=== PATIENT | female | born 1990 | race Caucasian/White ===

== ENCOUNTER 2022-02-07 13:26 | Inpatient (IN) ==
[2022-02-08] MEDS ORDERED: OXYTOCIN 30 UNITS/500 ML BAG IV PRN ×2 (09:50→12:52)
[2022-02-08] MEDS ORDERED: DINOPROSTONE 10 MG INSERT PV ONE (10:00)
[2022-02-08] MEDS: LACTATED RINGER'S 1,000 ML IV PRN (10:15)
--- NOTE | 2022-02-08 10:16 | History & Physical Report ---
Date of Service February 08, 2022 Assessment & Plan (1) Obesity affecting in third trimester, antepartum: Plan: 31-year-old at 39 weeks and 4 days of gestation being admitted for induction of labor at term for obesity, Vital signs stable afebrile, GBS negative, Coronavirus testing negative, heart rate reassuring, Cervix is unfavorable, discussed cervical ripening with prostaglandins and what to expect, All questions were answered, Plan to admit, monitor, labs, cervical ripening with Cervidil. Admission and Anticipated Discharge Date Admission Date: February 08, 2022 History of Present Illness Primary Care Provider: Freda Soares MD Patient is a 31-year-old G1, P0 at 39 weeks and 4 days of gestation who was scheduled for induction of labor at term for obesity. Patient has no complaints, denies contractions, leakage of fluid or vaginal bleeding. She reports good movements. She had 1 time of small trickle yesterday which was followed by mucous discharge. No more leaking since then. Per her her has been uncomplicated. She had ultrasound at 34.[address] [facility] and growth was 41 percentile. GBS is negative and coronavirus testing is negative. She has a history of depression anxiety and she is on Prozac. History of IBS, history of heart murmur as a child, echocardiogram was within normal limits. Allergies Allergy/AdvReac Type Severity Reaction Status Date / Time acetaminophen [From Vicodin] Allergy Intermediate Hives Verified 12/14/20 06:31 codeine Allergy Intermediate Hives Verified 12/14/20 06:31 hydrocodone [From Vicodin] Allergy Intermediate Hives Verified 12/14/20 06:31 Home Medications Medication Instructions Recorded Confirmed Type dicyclomine 20 mg tablet 20 mg PO BID 01/11/20 12/14/20 History fluoxetine 40 mg capsule 80 mg PO QAM 01/11/20 12/14/20 History hydroxyzine HCl 50 mg tablet 50 mg PO BID PRN 01/11/20 12/14/20 History iron,carbonyl 65 mg-vitamin C 125 1 tab PO Q OTHER DAY 01/11/20 12/14/20 History mg tablet,delayed release (Vitron-C) norgestimate 0.25 mg-ethinyl 1 tab PO DAILY 12/09/20 12/14/20 History estradiol 35 mcg tablet (Sprintec (28)) pantoprazole 40 mg tablet,delayed 40 mg PO QAM 12/09/20 12/14/20 History release (Protonix) oxycodone-acetaminophen 5 mg-325 1 tab PO Q6H PRN #20 tab 12/14/20 Rx mg tablet (Percocet) Patient History Medical History (Updated 02/08/22 @ 10:15 by Tia Bowers MD) Anemia Anxiety Cardiac murmur No murmur noted on 12/01/20 PCP exam Depression GERD (gastroesophageal reflux disease) History of anesthesia reaction with tonsillectomy in recovery room pt had to have oxygen put back on for awhile after it was originally removed, no further issues....no issues with other surgeries Migraine Morbid obesity with BMI of 40.0-44.9, adult Pre-diabetes Thrombocythemia Surgical History History of esophagogastroduodenoscopy (EGD) History of right breast biopsy x4--benign History of tonsillectomy and adenoidectomy History of wisdom tooth extraction Family History Father Family history of diabetes mellitus Grandmother (Maternal) Family history of diabetes mellitus Grandmother (Paternal) Family history of esophageal cancer Grandfather (Maternal) Family history of esophageal cancer Other No family history of adverse response to anesthesia Social History Smoking Status: Never smoker Second Hand Exposure: No; Hx Alcohol Use: Yes Alcohol type: wine Hx Substance Use: No Preferred Language: Romanian Communication Ability: Effective Brim Molder Required: No Beliefs That Will Affect Care: None Current Living Situation: Spouse Feels Safe at Home: Yes 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 History History of STDs, no history of herpes, chlamydia, gonorrhea Review of Systems as per Subjective / HPI Physical Exam Constitutional: WD/WN, vitals as above well developed, + acute distress and + obese Appears to be comfortable, not in distress Gastrointestinal (Abdomen): normal bowel sounds, soft, nontender, no hepatosplenomegaly (Gravid, Lucas 7 to 8 pounds) Genitourinary: normal external appearance OB Exam Abdomen: + vertex Manual OB Exam: + cervical dilation 1 cm, + cervical effacement 30% and + station high OB Exam Monitor Tracing: + external uterine monitor used and + category I Results & Data ([facility]) Vital Signs (Past 12 Hours) Vital Signs Pulse BP 02/08/22 09:37 103 H 127/77
[2022-02-08] MEDS ORDERED: FLUCONAZOLE 50 MG TAB PO ONE (10:37)
--- NOTE | 2022-02-08 10:38 | Obstetrical Progress Note ---
Date of Service February 08, 2022 Assessment & Plan Admission and Anticipated Discharge Date Admission Date: February 08, 2022 Subjective Amnisure negative Cervidil is placed in post fornix Otilia noted, Diflucan 1 tb once Results & Data ([facility]) Vital Signs (Past 12 Hours) Vital Signs Pulse BP 02/08/22 09:37 103 H 127/77
[2022-02-08 10:53] LABS: Hematocrit (blood only) 35.1 % (37-47); Hemoglobin 11.9 g/dL (12.0-16.0); Mean Corpuscular Hemoglobin 31.1 pg (25-34); Mean Corpuscular Hgb Conc 33.9 g/dL (32-36); Mean Corpuscular Volume 91.6 fL (80-100); Mean Platelet Volume 9.9 fL (7.4-10.4); Platelet Count 379 K/uL (130-400); RDW Coefficient of Variation 13.3 % (11.5-14.5); RDW Standard Deviation 44.2 fL (36.4-46.3); Red Blood Count 3.83 M/uL (4.2-5.4); White Blood Count 9.64 K/uL (4.8-10.8)
[2022-02-08] MEDS ORDERED: IBUPROFEN 600 MG TAB PO PRN (12:52)
[2022-02-08] MEDS ORDERED: miSOPROStoL 200 MCG TAB PR ONE (12:52)
[2022-02-08] MEDS ORDERED: ACETAMINOPHEN 325 MG TAB PO PRN (12:52)
[2022-02-08] MEDS ORDERED: DIPHTHERIA/TETANUS/PERTUSSIS 0.5 ML SYR/VIAL IM ONE (12:52)
[2022-02-08] MEDS ORDERED: MEASLES, MUMPS & RUBELLA VIRUS VIAL SQ ONE (12:52)
[2022-02-08] MEDS ORDERED: bisacodyL 10 MG SUPP PR PRN (12:52)
[2022-02-08] MEDS ORDERED: BENZOCAINE 20% AER SPR 82.5 GM CAN EXT PRN (12:52)
[2022-02-08] MEDS ORDERED: HYDROCORTISONE ACETATE 25 MG SUPP PR PRN (12:52)
[2022-02-08] MEDS ORDERED: BUTORPHANOL TARTRATE 1 MG/ML VIAL IV PRN (16:58)
--- NOTE | 2022-02-08 16:58 | Obstetrical Progress Note ---
Date of Service February 08, 2022 Assessment & Plan Admission and Anticipated Discharge Date Admission Date: February 08, 2022 Subjective Patient is reevaluated. She feels well no complaints Sporatic mild ctxs, not painful No LOF nor VB FM+ FHR reassuring Continue with cervical ripening and monitor Results & Data ([facility]) Vital Signs (Past 12 Hours) Vital Signs Temp Pulse Resp BP 02/08/22 10:55 37.2 C 20 02/08/22 09:37 103 H 127/77
--- NOTE | 2022-02-08 22:43 | Obstetrical Progress Note ---
Date of Service February 08, 2022 Assessment & Plan Admission and Anticipated Discharge Date Admission Date: February 08, 2022 Subjective Patient is reevaluated. She started to feel contractions every 5 to 6 minutes s ton 7 PM. They are more painful but not long enough that she would require pain medication. No leakage of fluid or vaginal bleeding. She reports good movements. Vital signs stable afebrile, heart rate category 1, VE; 1-2 cm/ 30%/ -3, ballotable head, cervidil is removed Plan for a meal, shower and continue cervical ripening with PO Cytotec. All questions were answered Results & Data ([facility]) Vital Signs (Past 12 Hours) Vital Signs Temp Pulse Resp BP 02/08/22 22:34 36.9 C 80 18 128/59 L 02/08/22 19:46 36.9 C 91 H 18 132/79 02/08/22 10:55 37.2 C 20
[2022-02-08] MEDS: DOCUSATE SODIUM 100 MG CAP PO SCH (23:15)
[2022-02-09] MEDS: miSOPROStoL 50 MCG TAB PO SCH ×3 (00:12→11:43)
[2022-02-09 07:31] LABS: Hematocrit (blood only) 32.6 % (37-47); Hemoglobin 10.9 g/dL (12.0-16.0); Mean Corpuscular Hemoglobin 30.9 pg (25-34); Mean Corpuscular Hgb Conc 33.4 g/dL (32-36); Mean Corpuscular Volume 92.4 fL (80-100); Mean Platelet Volume 10.2 fL (7.4-10.4); Platelet Count 343 K/uL (130-400); RDW Coefficient of Variation 13.3 % (11.5-14.5); RDW Standard Deviation 44.3 fL (36.4-46.3); Red Blood Count 3.53 M/uL (4.2-5.4); White Blood Count 8.78 K/uL (4.8-10.8)
[2022-02-09] MEDS ORDERED: OXYTOCIN 30 UNITS/500 ML BAG IV PRN ×2 (07:59→17:08)
[2022-02-09] MEDS ORDERED: FERROUS SULFATE 325 MG TAB PO SCH (08:00)
--- NOTE | 2022-02-09 08:01 | Obstetrical Progress Note ---
Date of Service February 09, 2022 Assessment & Plan Admission and Anticipated Discharge Date Admission Date: February 08, 2022 Subjective Patient feels more painful ctxs/ back pain, 5/10 Received 2 doses of PO Cytotec, due for 3rd dose VSS Afebrile VE; 3-4 cm/ 50%/ -2, tight bag, AROM'ed, abundant amount of meconium stained fluid FHR categ I Plan to start Oxytocin Results & Data ([facility]) Vital Signs (Past 12 Hours) Vital Signs Temp Pulse Resp BP 02/09/22 07:24 81 127/75 02/09/22 03:20 36.7 C 77 18 116/71 02/08/22 22:34 36.9 C 80 18 128/59 L
[2022-02-09] MEDS ORDERED: fentaNYL citrate 100 MCG/2 ML VIAL ONE ×3 (08:17→10:43)
[2022-02-09] MEDS ORDERED: ePHEDrine sulfate 50 MG/ML AMP ONE (08:17)
[2022-02-09] MEDS ORDERED: BUPIVACAINE 0.25% 30 ML VIAL ONE ×2 (08:17→10:39)
[2022-02-09] MEDS ORDERED: SODIUM CHLORIDE 0.9% INJ 10 ML VIAL ONE (08:17)
[2022-02-09] MEDS ORDERED: fentaNYL 2MCG/ML ROPIVACAINE 1.25MG/ML 100 ML BAG EPI ONE (08:18)
[2022-02-09] MEDS: LACTATED RINGER'S 1,000 ML IV PRN (09:00)
[2022-02-09] MEDS ORDERED: NON-FORMULARY MEDICATION (Iron,Carbonyl-Vitamin C [Vitron-C] 65 mg iron- 125 mg Tablet,Del PO SCH (09:00)
--- NOTE | 2022-02-09 09:10 | Anesthesiology Consultation ---
Date of Service February 09, 2022 Assessment & Plan Chart Review Chart Review: Acceptable Risk for Labor Epidural Consults Requested none History Height/Weight Height: 5 ft 5 in Weight: 111.316 kg Allergies Allergy/AdvReac Type Severity Reaction Status Date / Time acetaminophen [From Vicodin] Allergy Intermediate Hives Verified 12/14/20 06:31 codeine Allergy Intermediate Hives Verified 12/14/20 06:31 hydrocodone [From Vicodin] Allergy Intermediate Hives Verified 12/14/20 06:31 Medications Home Medications Medication Instructions Recorded Confirmed Last Taken dicyclomine 20 mg tablet 20 mg PO BID 01/11/20 02/08/22 02/08/22 0800 iron,carbonyl 65 mg-vitamin C 125 1 tab PO BID 01/11/20 02/08/22 02/08/22 mg tablet,delayed release 0800 (Vitron-C) pantoprazole 40 mg tablet,delayed 40 mg PO QAM 12/09/20 02/08/22 02/08/22 release (Protonix) 0800 cyanocobalamin (vitamin B-12) 1,000 mcg PO DAILY 02/08/22 02/08/22 02/07/22 20:00 1,000 mcg tablet (Vitamin B-12) fluoxetine 40 mg capsule (Prozac) 80 mg PO QAM 02/08/22 02/08/22 02/08/22 0800 folic acid 0.8 mg capsule 0.8 mg PO DAILY 02/08/22 02/08/22 02/08/22 0800 pyridoxine (vitamin B6) 50 mg 50 mg PO DAILY 02/08/22 02/08/22 02/07/22 20:00 tablet (Vitamin B-6) Active Medications Generic Name Dose Route Start Last Admin Trade Name Freq PRN Reason Stop Dose Admin Docusate Sodium 100 mg 02/08/22 21:00 02/08/22 23:15 Docusate Sodium 100 Mg Cap PO 03/10/22 20:59 Not Given DAILY@ SAMANTHA Lactated Ringer's 1,000 mls @ 150 mls/hr 02/08/22 09:50 02/08/22 10:15 Lr IV 02/10/22 09:49 150 mls/hr .[id number] PRN Administration L&D Protocol Protocol Misoprostol 50 mcg 02/09/22 00:00 02/09/22 04:05 Misoprostol 50 Mcg Tab PO 03/11/22 00:00 50 mcg Q4 SAMANTHA Administration Past Medical History Medical History (Updated 02/08/22 @ 10:15 by Tia Bowers MD) Anemia Anxiety Cardiac murmur No murmur noted on 12/01/20 PCP exam Depression GERD (gastroesophageal reflux disease) History of anesthesia reaction with tonsillectomy in recovery room pt had to have oxygen put back on for awhile after it was originally removed, no further issues....no issues with other surgeries Migraine Morbid obesity with BMI of 40.0-44.9, adult Pre-diabetes Thrombocythemia Past Family History Family History Father Family history of diabetes mellitus Grandmother (Maternal) Family history of diabetes mellitus Grandmother (Paternal) Family history of esophageal cancer Grandfather (Maternal) Family history of esophageal cancer Other No family history of adverse response to anesthesia Past Surgical History Surgical History (Updated 02/08/22 @ 10:45 by Gretchen Duran RN) History of esophagogastroduodenoscopy (EGD) History of right breast biopsy x4--benign History of tonsillectomy and adenoidectomy History of wisdom tooth extraction Hx laparoscopic cholecystectomy Social History Smoking Status: Never smoker Hx Alcohol Use: No Alcohol type: wine alcohol intake frequency: holidays/special occasions only Hx Substance Use: No substance use type: does not use Physical Exam Vital Signs Last Vital Signs Temp 36.7 C 02/09/22 03:20 Pulse 80 02/09/22 09:03 Resp 18 02/09/22 03:20 BP 120/73 02/09/22 09:01 Pulse Ox 97 02/09/22 09:03 Testing Laboratory Results 02/09/22 06:39
[2022-02-09] MEDS ORDERED: ePHEDrine sulfate 50 MG/ML AMP IV PRN (09:11)
[2022-02-09] MEDS ORDERED: NALOXONE HCL 0.4 MG/1 ML VIAL/CARP IV PRN (09:11)
[2022-02-09] MEDS ORDERED: diphenhydrAMINE 50 MG/ML VIAL IV PRN (09:11)
[2022-02-09] MEDS ORDERED: NALOXONE HCL 1 MG in SODIUM CHLORIDE 0.9% 1000ML 1,000 ML IV PRN (09:11)
[2022-02-09] MEDS ORDERED: NALBUPHINE HCL INJ 10 MG/ML AMP IV PRN (09:11)
[2022-02-09] MEDS: fentaNYL 2MCG/ML ROPIVACAINE 1.25MG/ML 100 ML BAG EPI PRN ×2 (10:33→15:15)
[2022-02-09] MEDS ORDERED: LIDOCAINE 2% MPF LOCAL 5 ML VIAL INFIL ONE (10:44)
[2022-02-09] MEDS: DOCUSATE SODIUM 100 MG CAP PO SCH ×3 (11:43→21:20)
[2022-02-09] MEDS: PRENATAL VITAMIN 1 TAB PO SCH (11:43)
[2022-02-09] MEDS: CYANOCOBALAMIN (B-12) 500 MCG TABLET PO SCH (11:45)
[2022-02-09] MEDS: ASCORBIC ACID 500 MG TAB PO SCH ×2 (11:45→21:19)
[2022-02-09] MEDS: DICYCLOMINE HCL 20 MG TAB PO SCH ×2 (11:46→19:46)
[2022-02-09] MEDS: FERROUS SULFATE 325 MG TAB PO SCH ×2 (11:47→19:45)
[2022-02-09] MEDS: FLUoxetine HCL 20 MG CAP PO SCH (11:50)
[2022-02-09] MEDS: PANTOprazole 40 MG TAB PO SCH (11:50)
[2022-02-09] MEDS: FOLIC ACID 400 MCG TAB PO SCH (11:50)
[2022-02-09] MEDS: PYRIDOXINE HCL 50 MG TAB PO SCH (11:51)
--- NOTE | 2022-02-09 14:26 | Obstetrical Progress Note ---
Date of Service February 09, 2022 Assessment & Plan Admission and Anticipated Discharge Date Admission Date: February 08, 2022 Subjective Patient is comfortable, on her side with peanut ball between legs VSS Afebrile FHR categ I VE: 7-8 cm/ 80%, 0 station Continue to monitor closely Anticipate Results & Data ([facility]) Vital Signs (Past 12 Hours) Vital Signs Temp Pulse Resp BP Pulse Ox 02/09/22 14:18 85 98 02/09/22 14:13 67 95 02/09/22 14:09 67 122/60 02/09/22 14:08 67 96 02/09/22 14:03 81 97 02/09/22 13:58 77 96 02/09/22 13:54 72 124/64 02/09/22 13:53 69 97 02/09/22 13:48 69 97 02/09/22 13:43 67 97 02/09/22 13:40 76 121/60 02/09/22 13:38 71 97 02/09/22 13:33 78 97 02/09/22 13:28 76 98 02/09/22 13:25 77 130/67 02/09/22 13:23 72 97 02/09/22 13:18 75 97 02/09/22 13:13 81 98 02/09/22 13:10 75 119/66 02/09/22 13:08 80 98 02/09/22 13:03 77 98 02/09/22 12:58 81 97 02/09/22 12:55 81 125/60 02/09/22 12:53 83 97 02/09/22 12:49 37.2 C 18 02/09/22 12:48 82 98 02/09/22 12:43 72 97 02/09/22 12:40 82 117/77 02/09/22 12:38 76 98 02/09/22 12:33 72 97 02/09/22 12:28 63 96 02/09/22 12:24 64 110/53 L 02/09/22 12:23 60 96 02/09/22 12:18 62 96 02/09/22 12:13 62 96 02/09/22 12:09 56 L 105/56 L 02/09/22 12:08 61 95 02/09/22 12:03 62 96 02/09/22 11:58 60 96 02/09/22 11:54 58 L 100/58 L 02/09/22 11:53 62 96 02/09/22 11:48 61 96 02/09/22 11:43 66 97 02/09/22 11:39 61 98/55 L 02/09/22 11:38 63 96 02/09/22 11:33 62 95 02/09/22 11:28 61 96 02/09/22 11:24 67 96/54 L 02/09/22 11:23 63 96 02/09/22 11:18 73 98 02/09/22 11:13 79 97 02/09/22 11:09 77 106/61 02/09/22 11:08 79 97 02/09/22 11:06 85 105/63 02/09/22 11:03 83 106/61 97 02/09/22 11:00 75 110/65 02/09/22 10:58 85 96 02/09/22 10:57 74 112/62 02/09/22 10:54 78 115/65 02/09/22 10:53 69 97 02/09/22 10:51 65 109/69 02/09/22 10:48 73 125/71 97 02/09/22 10:43 111 H 98 02/09/22 10:41 36.9 C 20 02/09/22 10:39 70 112/58 L 02/09/22 10:38 71 96 02/09/22 10:33 81 97 02/09/22 10:28 75 98 02/09/22 10:23 65 97 02/09/22 10:18 66 97 02/09/22 10:13 67 98 02/09/22 10:08 64 98 02/09/22 10:03 69 98 02/09/22 09:58 70 97 02/09/22 09:54 83 127/76 02/09/22 09:53 76 97 02/09/22 09:48 69 96 02/09/22 09:44 69 122/76 02/09/22 09:43 68 96 02/09/22 09:38 69 97 02/09/22 09:34 77 124/73 02/09/22 09:33 76 97 02/09/22 09:28 75 98 02/09/22 09:25 71 119/78 06/17/22 09:23 76 97 02/09/22 09:18 80 97 02/09/22 09:15 82 119/71 02/09/22 09:13 78 97 02/09/22 09:08 86 97 02/09/22 09:03 80 97 02/09/22 09:01 88 120/73 02/09/22 08:59 85 125/84 02/09/22 08:58 87 96 02/09/22 08:57 92 H 123/63 02/09/22 08:55 86 128/61 02/09/22 08:53 82 126/61 97 02/09/22 08:51 85 125/59 L 02/09/22 08:48 82 132/64 97 02/09/22 08:45 89 123/73 02/09/22 08:43 89 128/77 98 02/09/22 08:38 87 99 02/09/22 08:33 84 99 02/09/22 07:24 81 127/75 02/09/22 03:20 36.7 C 77 18 116/71
--- NOTE | 2022-02-09 16:00 | Obstetrical Progress Note ---
Date of Service February 09, 2022 Assessment & Plan Admission and Anticipated Discharge Date Admission Date: February 08, 2022 Subjective Patient felt pressure and wanted to push VE: head at +2 station FHR Categ I Continue pushing and monitor closely. Results & Data ([facility]) Vital Signs (Past 12 Hours) Vital Signs Temp Pulse Resp BP Pulse Ox 02/09/22 15:53 141 H 94 02/09/22 15:48 125 H 95 02/09/22 15:43 119 H 96 02/09/22 15:42 90 92 02/09/22 15:40 86 120/57 L 02/09/22 15:38 100 H 97 02/09/22 15:33 93 H 96 02/09/22 15:28 92 H 99 02/09/22 15:23 92 H 99 02/09/22 15:18 77 100 02/09/22 15:13 96 H 99 02/09/22 15:10 85 119/63 02/09/22 15:08 74 98 02/09/22 15:03 95 H 99 02/09/22 14:58 84 98 02/09/22 14:54 75 119/59 L 02/09/22 14:53 80 99 02/09/22 14:48 84 99 02/09/22 14:43 79 99 02/09/22 14:40 83 130/57 L 02/09/22 14:38 82 99 02/09/22 14:33 80 98 02/09/22 14:28 75 98 02/09/22 14:24 72 111/58 L 02/09/22 14:23 72 97 02/09/22 14:18 85 98 02/09/22 14:13 67 95 02/09/22 14:09 67 122/60 02/09/22 14:08 67 96 02/09/22 14:03 81 97 02/09/22 13:58 77 96 02/09/22 13:54 72 124/64 02/09/22 13:53 69 97 02/09/22 13:48 69 97 02/09/22 13:43 67 97 02/09/22 13:40 76 121/60 02/09/22 13:38 71 97 02/09/22 13:33 78 97 02/09/22 13:28 76 98 02/09/22 13:25 77 130/67 02/09/22 13:23 72 97 02/09/22 13:18 75 97 02/09/22 13:13 81 98 02/09/22 13:10 75 119/66 02/09/22 13:08 80 98 02/09/22 13:03 77 98 02/09/22 12:58 81 97 02/09/22 12:55 81 125/60 02/09/22 12:53 83 97 02/09/22 12:49 37.2 C 18 02/09/22 12:48 82 98 02/09/22 12:43 72 97 02/09/22 12:40 82 117/77 02/09/22 12:38 76 98 02/09/22 12:33 72 97 02/09/22 12:28 63 96 02/09/22 12:24 64 110/53 L 02/09/22 12:23 60 96 02/09/22 12:18 62 96 02/09/22 12:13 62 96 02/09/22 12:09 56 L 105/56 L 02/09/22 12:08 61 95 02/09/22 12:03 62 96 02/09/22 11:58 60 96 02/09/22 11:54 58 L 100/58 L 02/09/22 11:53 62 96 02/09/22 11:48 61 96 02/09/22 11:43 66 97 02/09/22 11:39 61 98/55 L 02/09/22 11:38 63 96 02/09/22 11:33 62 95 02/09/22 11:28 61 96 02/09/22 11:24 67 96/54 L 02/09/22 11:23 63 96 02/09/22 11:18 73 98 02/09/22 11:13 79 97 02/09/22 11:09 77 106/61 02/09/22 11:08 79 97 02/09/22 11:06 85 105/63 02/09/22 11:03 83 106/61 97 02/09/22 11:00 75 110/65 02/09/22 10:58 85 96 02/09/22 10:57 74 112/62 02/09/22 10:54 78 115/65 02/09/22 10:53 69 97 02/09/22 10:51 65 109/69 02/09/22 10:48 73 125/71 97 02/09/22 10:43 111 H 98 02/09/22 10:41 36.9 C 20 02/09/22 10:39 70 112/58 L 02/09/22 10:38 71 96 02/09/22 10:33 81 97 02/09/22 10:28 75 98 02/09/22 10:23 65 97 02/09/22 10:18 66 97 02/09/22 10:13 67 98 02/09/22 10:08 64 98 02/09/22 10:03 69 98 02/09/22 09:58 70 97 02/09/22 09:54 83 127/76 02/09/22 09:53 76 97 02/09/22 09:48 69 96 02/09/22 09:44 69 122/76 02/09/22 09:43 68 96 02/09/22 09:38 69 97 02/09/22 09:34 77 124/73 02/09/22 09:33 76 97 02/09/22 09:28 75 98 02/09/22 09:25 71 119/78 02/09/22 09:23 76 97 02/09/22 09:18 80 97 02/09/22 09:15 82 119/71 02/09/22 09:13 78 97 02/09/22 09:08 86 97 02/09/22 09:03 80 97 02/09/22 09:01 88 120/73 02/09/22 08:59 85 125/84 02/09/22 08:58 87 96 02/09/22 08:57 92 H 123/63 02/09/22 08:55 86 128/61 02/09/22 08:53 82 126/61 97 02/09/22 08:51 85 125/59 L 02/09/22 08:48 82 132/64 97 02/09/22 08:45 89 123/73 02/09/22 08:43 89 128/77 98 02/09/22 08:38 87 99 02/09/22 08:33 84 99 02/09/22 07:24 81 127/75
[2022-02-09] MEDS ORDERED: LIDOCAINE 1% LOCAL 20 ML VIAL ONE ×2 (16:27→16:33)
[2022-02-09] MEDS ORDERED: ACETAMINOPHEN 325 MG TAB PO PRN (17:08)
[2022-02-09] MEDS ORDERED: BENZOCAINE 20% AER SPR 82.5 GM CAN EXT PRN (17:08)
[2022-02-09] MEDS ORDERED: HYDROCORTISONE ACETATE 25 MG SUPP PR PRN (17:08)
[2022-02-09] MEDS ORDERED: bisacodyL 10 MG SUPP PR PRN (17:08)
[2022-02-09] MEDS ORDERED: METHYLERGONOVINE MALEATE 0.2 MG/ML AMP IM STA (17:10)
[2022-02-09] MEDS ORDERED: ceFAZolin 2000MG 2,000 MG/15 ML SYR IV STA (17:27)
--- NOTE | 2022-02-09 17:54 | Delivery Summary ---
Vaginal Delivery Summary Date of Service February 09, 2022 Vaginal Delivery Summary The patient was found to be fluid dilated and desire to push. She pushed for about half an hour and delivered the head without difficulty. Shoulders were delivered with minimal traction, the baby was handed off to the mother where mouth and nose were suctioned, the cord was clamped x2 and cut. The baby was taken off by the nursery team. The cord blood was obtained and the vagina was checked for lacerations. There was a small second-degree at the perineum which was confirmed with rectal exam, excellent sphincter tone was noted. The gloves were changed and there were bilateral first-degree labial l acerations which were close to the urethra. The rest of the vagina was intact. Second-degree perineal laceration was repaired with 2-0 Vicryl bringing the bulbocavernosus muscles together and vaginal mucosa in a continuous manner. Excellent hemostasis achieved. A Juarez catheter was placed into the urethra help to repair labial lacerations. Labial lacerations were repaired with 3-0 Vicryl on SH needle in a continuous fashion keeping the anatomic integrity.Good hemostasis was achieved. The placenta was found to be the vagina, delivered spontaneously as intact and complete. Uterus was explored and found to be empty and cleared of all clots and debris's. Fundus was firm and EBL was 300 mL. IV oxytocin infusion was started. All the repairs were checked to be hemostatic and Juarez catheter was left in to drain overnight. the mom and baby tolerated procedure well. Baby was a viable female infant , Apgars were 6/9 and weight is pending. At the end of the procedure the sponge needle instrument counts was correct x2. No complications happened and I was present during whole procedure.
[2022-02-09] MEDS: IBUPROFEN 600 MG TAB PO PRN (18:07)
--- NOTE | 2022-02-09 19:30 | Anesthesia Procedure Note ---
Date of Service February 09, 2022 Anesthesia Post Epidural Note Vital Signs Vital Signs: Temp Pulse Resp BP Pulse Ox 37.2 C 86 18 135/69 85 L 02/09/22 12:49 02/09/22 19:00 02/09/22 12:49 02/09/22 19:00 02/09/22 16:14 Pain Intensity Bilateral Abdomen: Pain Intensity: 7 Notes Mental Status: alert / awake / arousable Nausea / Vomiting: adequately controlled Pain: adequately controlled Airway Patency, RR, SpO2: stable & adequate BP & HR: stable & adequate Hydration State: stable & adequate Neuraxial Anesthesia: was administered and sensory block is resolving Anesthetic Complications: no major complications apparent and Pt Satisfied with anesthetic care Epidural: Removed without complications and With tip intact
[2022-02-09] MEDS ORDERED: bisacodyL 5 MG TABEC PO SCH (20:00)
[2022-02-10] MEDS: IBUPROFEN 600 MG TAB PO PRN ×3 (02:07→12:24)
[2022-02-10 06:36] LABS: Hematocrit (blood only) 31.4 % (37-47); Hemoglobin 10.5 g/dL (12.0-16.0); Mean Corpuscular Hemoglobin 30.9 pg (25-34); Mean Corpuscular Hgb Conc 33.4 g/dL (32-36); Mean Corpuscular Volume 92.4 fL (80-100); Mean Platelet Volume 10.1 fL (7.4-10.4); Platelet Count 345 K/uL (130-400); RDW Coefficient of Variation 13.1 % (11.5-14.5); RDW Standard Deviation 44.3 fL (36.4-46.3); White Blood Count 17.19 K/uL (4.8-10.8)
[2022-02-10] MEDS ORDERED: Nursing to Pharmacy Communication SCH (07:30)
[2022-02-10] MEDS ORDERED: PRENATAL VITAMIN 1 TAB PO SCH (08:00)
[2022-02-10] MEDS ORDERED: MEASLES, MUMPS & RUBELLA VIRUS VIAL SQ ONE (08:00)
[2022-02-10] MEDS ORDERED: DIPHTHERIA/TETANUS/PERTUSSIS 0.5 ML SYR/VIAL IM ONE (08:00)
[2022-02-10] MEDS ORDERED: FERROUS SULFATE 325 MG TAB PO SCH (08:00)
[2022-02-10] MEDS: DOCUSATE SODIUM 100 MG CAP PO SCH ×3 (08:58→09:50)
[2022-02-10] MEDS: FERROUS SULFATE 325 MG TAB PO SCH (08:58)
[2022-02-10] MEDS: PRENATAL VITAMIN 1 TAB PO SCH (08:58)
[2022-02-10] MEDS: PANTOprazole 40 MG TAB PO SCH (09:00)
[2022-02-10] MEDS: FLUoxetine HCL 20 MG CAP PO SCH (09:00)
[2022-02-10] MEDS: DICYCLOMINE HCL 20 MG TAB PO SCH (09:44)
[2022-02-10] MEDS: FOLIC ACID 400 MCG TAB PO SCH (09:45)
[2022-02-10] MEDS: ASCORBIC ACID 500 MG TAB PO SCH (09:46)
[2022-02-10] MEDS: CYANOCOBALAMIN (B-12) 500 MCG TABLET PO SCH (09:48)
[2022-02-10] MEDS: PYRIDOXINE HCL 50 MG TAB PO SCH (09:49)
[2022-02-10] MEDS ORDERED: bisacodyL 5 MG TABEC PO SCH (20:00)
== END 2022-02-10 18:10 | disposition home or self-care (01) | DRG 807 ==
LOC: 4S1 02-08 09:32 → 4E2 02-09 20:45